=== PATIENT | male | born 1950 | race Caucasian/White ===

== ENCOUNTER → 2022-03-18 | Day surgery (SDC) | payer OTHER ==
[~2022-03-18] VITALS: Ht 170.2 cm; Wt 102.0 kg
[~2022-03-18] MED LIST: CARTIA XT120 MG PO; COLESTIPOL HCL1 GM PO; CRESTOR10 MG PO; ELIQUIS5 MG PO; HUMALOG SC; LASIX40 MG PO; LIPITOR40 MG PO; LOPRESSOR50 MG PO; NOVOLOG VI100 UNIT/1 SC; OXYCODONE-ACET1 EACH PO; PRINIVIL10 MG PO; TRAZODONE 100M100 MG PO; TRESIBA FL200 UNIT/1 SC; VENTOLIN HFA IN18 GM INH
== END | disposition home or self-care (01) ==
LOC: FAS 10:40
DX: Z12.11 Encounter for screening for malignant neoplasm of colon (principal); D12.0 Benign neoplasm of cecum; D12.2 Benign neoplasm of ascending colon; D12.8 Benign neoplasm of rectum; D12.5 Benign neoplasm of sigmoid colon; E11.9 Type 2 diabetes mellitus without complications; I25.10 Atherosclerotic heart disease of native coronary artery without angina pectoris; Z87.891 Personal history of nicotine dependence; Z88.0 Allergy status to penicillin; Z79.4 Long term (current) use of insulin; Z79.01 Long term (current) use of anticoagulants; Z79.899 Other long term (current) drug therapy
CPT/HCPCS: J1610; J2704; J7120

== ENCOUNTER 2022-03-20 10:27 | Inpatient (IN) | payer OTHER ==
[~2022-03-20] VITALS: Ht 170.2 cm; Wt 99.5 kg
[2022-03-20 11:42] LABS: BASOPHIL 0.4 % (0-2); EOSINOPHIL 3.8 % (0-7); HCT 46.5 % (42.0-52.0); HGB 15.1 g/dl (13.2-18.0); LYMPHOCYTE 19.1 % (15-48); MCH 28.8 pg (25.0-31.0); MCHC 32.5 g/dL (32.0-36.0); MCV 88.6 fL (78.0-100.0); MONOCYTE 10.4 % (0-12); NRBC 0; PLT 214 K/uL (150-400); RBC 5.25 M/uL (4.70-6.00); RDW 13.4 % (11.5-14.0); WBC 9.4 K/uL (4.0-10.5)
[2022-03-20 11:59] LABS: ALBUMIN 3.3 g/dL (3.4-5.0); BILIRUBIN - TOTAL 0.6 mg/dL (0.2-1.0); BUN/CREAT RATIO (CALC) 12.7 RATIO; CREATININE 1.26 mg/dL (0.67-1.17); GLOBULIN (CALCULATION) 3.4 g/dL; POTASSIUM 4.7 mmol/L (3.5-5.1); TOTAL PROTEIN 6.7 g/dL (6.4-8.2)
[2022-03-20 12:06] LABS: INR 1.13 (0.9-1.2); PROTHROMBIN TIME 14.2 SECONDS (11.9-13.9); PTT 28.9 SECONDS (24.9-34.6)
[2022-03-20 12:37] LABS: CORONAVIRUS 2019 SARS-COV-2 NEGATIVE (NEGATIVE); INFLUENZA A NAA NEGATIVE (NEGATIVE)
[2022-03-21 06:06] LABS: HCT 31.3 % (42.0-52.0); MCH 28.9 pg (25.0-31.0); MCHC 33.2 g/dL (32.0-36.0); MCV 86.9 fL (78.0-100.0); MPV 10.9 fL (6.0-9.5); RBC 3.6 M/uL (4.70-6.00); RDW 13.4 % (11.5-14.0); WBC 9.5 K/uL (4.0-10.5)
[2022-03-21 07:04] LABS: HGB 10.4 g/dl (13.2-18.0)
[2022-03-21 14:04] LABS: HGB 10.4 g/dL (13.2-18.0)
[2022-03-22 05:41] LABS: HGB 9.3 g/dL (13.2-18.0)
[2022-03-22 06:13] LABS: BUN/CREAT RATIO (CALC) 12.6 RATIO; CREATININE 1.11 mg/dL (0.67-1.17); POTASSIUM 4.6 mmol/L (3.5-5.1)
== END 2022-03-22 12:40 | disposition home or self-care (01) | DRG 920 ==
LOC: FER 10:27 → FTCU 12:34 → FMS 12:34 → FTCU 03-21 11:05
PROVIDERS: Internal Medicine; ADMIT Family Medicine
PROC: B24BZZZ Ultrasonography of Heart with Aorta (ICD-10-PCS; principal; 2022-03-21)
DX: K91.840 Postprocedural hemorrhage of a digestive system organ or structure following a digestive system procedure (principal); D62 Acute posthemorrhagic anemia; K62.5 Hemorrhage of anus and rectum; I50.32 Chronic diastolic (congestive) heart failure; I48.20 Chronic atrial fibrillation, unspecified; I13.0 Hypertensive heart and chronic kidney disease with heart failure and stage 1 through stage 4 chronic kidney disease, or unspecified chronic kidney disease; Z20.822 Contact with and (suspected) exposure to COVID-19; I95.9 Hypotension, unspecified; E11.22 Type 2 diabetes mellitus with diabetic chronic kidney disease; N18.30 Chronic kidney disease, stage 3 unspecified; I25.10 Atherosclerotic heart disease of native coronary artery without angina pectoris; J44.9 Chronic obstructive pulmonary disease, unspecified; Z95.0 Presence of cardiac pacemaker; I25.2 Old myocardial infarction; Z79.01 Long term (current) use of anticoagulants; Z90.49 Acquired absence of other specified parts of digestive tract; Z88.0 Allergy status to penicillin; Z87.891 Personal history of nicotine dependence; Z28.311 Partially vaccinated for COVID-19; Z79.899 Other long term (current) drug therapy; Z98.890 Other specified postprocedural states
CPT/HCPCS: 36415; 78278; 80048; 80053; 82962; 83605; 85018; 85025; 85610; 85730; 86850; 86900; 86901; 86922; 93005; 99284; A4641; A9560; J1160; J3475; J7120; U0002